=== PATIENT | female | born 1995 | race African-American/Black ===

== ENCOUNTER 2019-11-11 22:01 | Observation (INO) | payer MEDICAID ==
[~2019-11-11] VITALS: Ht 162.6 cm; Wt 69.4 kg
[2019-11-11] MEDS ORDERED: FERR325T6 PO (22:56)
[2019-11-11] MEDS ORDERED: PREN1TAB78 PO (22:56)
[2019-11-11] MEDS ORDERED: ONDA8TAB6 PO (22:56)
[2019-11-11] MEDS ORDERED: ALBUTEROL (23:14)
== END 2019-11-11 23:59 | disposition home or self-care (01) ==
LOC: 8 EST LDRP 22:01
PROVIDERS: ADMIT Obstetrics & Gynecology; ATTEND Obstetrics & Gynecology
DX: O62.9 Abnormality of forces of labor, unspecified (principal); O26.893 Other specified pregnancy related conditions, third trimester; R10.9 Unspecified abdominal pain; Z3A.36 36 weeks gestation of pregnancy
CPT/HCPCS: 99281; G0378

== ENCOUNTER 2024-07-13 09:23 | Emergency (ER) | payer BC, MEDICAID, OTHER ==
[~2024-07-13] VITALS: Ht 165.1 cm; Wt 61.2 kg
[~2024-07-13 09:23] MED LIST: ALBU6.7H15 INH; PRED10TA MT
[2024-07-13 09:32] VITALS: O2SAT 96
[2024-07-13 10:34] LABS: HEMOGLOBIN. 12.2 g/dL (12.0-16.0); MEAN CORPUSCULAR HEMOGLOBIN 29.8 pg (28.0-32.0); MEAN CORPUSCULAR HGB CONC 32.9 g/dL (31.0-37.0); MEAN CORPUSCULAR VOLUME 90.6 fL (81.0-99.0); MEAN PLATELET VOLUME 6.8 fl (7.4-10.4); PLATELET 234 x1000/uL (130-400); RED BLOOD CELL COUNT 4.09 mill/uL (4.2-5.4); RED CELL DISTRIBUTION WIDTH 13.2 % (11.6-14.6); WHITE BLOOD COUNT 4.4 x1000/uL (4.5-11.0)
[2024-07-13 10:39] LABS: CHLORIDE 102 mEq/L (98-107); DIFFERENTIAL COMMENT 1; POTASSIUM 3.3 mEq/L (3.5-5.1); SODIUM 134 mEq/L (136-145)
[2024-07-13 10:40] LABS: CALCIUM 9.1 mg/dL (8.7-10.4); CARBON DIOXIDE 25 mEq/L (21-32)
[2024-07-13 10:45] VITALS: PULSE 62; RESP 18
[2024-07-13 10:45] LABS: CREATININE 0.9 mg/dL (0.6-1.0); GLUCOSE 113 mg/dL (70-105); UREA NITROGEN BLOOD 8 mg/dL (9-23)
[2024-07-13] MEDS: IPRATROPIUM/ALBUTEROL 0.5-3(2.5)MG/3ML NEB HHN ONE (10:45)
[2024-07-13] MEDS: DEXAMETHASONE 10 MG/ML VIAL PO ONE (10:49)
[2024-07-13 10:53] LABS: HCG SCREEN NEGATIVE
[2024-07-13] MEDS: POTASSIUM CHLORIDE 10MEQ TABLET SR PO ONE (11:26)
[2024-07-13] MEDS ORDERED: IBUP-2028 MT (11:37)
[2024-07-13 11:48] LABS: PLATELET ESTIMATE NORMAL
[2024-07-13] MEDS: ONDANSETRON HCL 4MG/2ML INJ IV ONE (12:12)
[2024-07-13] MEDS: SODIUM CHLORIDE 0.9% 1,000 ML IV ONE (12:12)
[2024-07-13] MEDS: KETOROLAC 30MG/ML VIAL IV STA (12:12)
[2024-07-13] MEDS ORDERED: ACETAMINOPHEN 325MG TABLET PO ONE (12:45)
[2024-07-13 12:56] VITALS: BP 127/77; PULSE 79; RESP 18; TEMP 37.00296; O2SAT 98
== END 2024-07-13 13:17 | disposition home or self-care (01) ==
LOC: ER 09:23
DX: R06.02 Shortness of breath (principal); J45.909 Unspecified asthma, uncomplicated; Z90.49 Acquired absence of other specified parts of digestive tract
CPT/HCPCS: 80048; 81025; 84703; 85025; 36415; 71045; 94640; 96374; 96375; 99284; J1100; J1885; Z7610 ×2; J7030

== ENCOUNTER 2024-11-09 09:16 | Emergency (ER) | payer BC ==
[~2024-11-09] VITALS: Ht 162.6 cm; Wt 59.0 kg
[~2024-11-09 09:16] MED LIST changes: +IBUP-2028 MT
[2024-11-09 09:21] VITALS: BP 104/68; PULSE 98; RESP 12; TEMP 36.8; O2SAT 100; O2SAT 99
[2024-11-09] MEDS ORDERED: P50 MT (09:38)
[2024-11-09] MEDS ORDERED: ALBU18HF2 IH (09:38)
== END 2024-11-09 10:01 | disposition home or self-care (01) ==
LOC: ER 09:16
DX: J45.909 Unspecified asthma, uncomplicated (principal); Z76.0 Encounter for issue of repeat prescription; Z90.49 Acquired absence of other specified parts of digestive tract
CPT/HCPCS: 99281

== ENCOUNTER 2024-12-07 13:06 | Emergency (ER) | payer BC ==
[~2024-12-07] VITALS: Ht 162.6 cm; Wt 62.0 kg
[~2024-12-07 13:06] MED LIST changes: +ALBU18HF2 IH; +P50 MT
[2024-12-07 13:07] VITALS: PULSE 83; RESP 16; O2SAT 99
[2024-12-07 13:09] VITALS: BP 99/60; TEMP 36.7; O2SAT 99
[2024-12-07] MEDS ORDERED: P50 MT (13:44)
[2024-12-07] MEDS ORDERED: ALBU18HF2 IH (13:44)
== END 2024-12-07 14:06 | disposition home or self-care (01) ==
LOC: ER 13:06
DX: J45.901 Unspecified asthma with (acute) exacerbation (principal); Z90.49 Acquired absence of other specified parts of digestive tract; Z76.0 Encounter for issue of repeat prescription
CPT/HCPCS: 99283

== ENCOUNTER 2025-05-07 19:08 | Emergency (ER) | payer SELFPAY ==
[~2025-05-07] VITALS: Ht 160 cm; Wt 61.7 kg
[2025-05-07 19:15] VITALS: TEMP 37.1
[2025-05-07 19:49] LABS: BASOPHILS % 0.6 % (0.0-2.0); EOSINOPHILS % 5.0 % (0.0-5.0); HEMATOCRIT. 36.8 % (36.0-48.0); HEMOGLOBIN. 12.1 g/dL (12.0-16.0); LYMPHOCYTES % 46.0 % (20.0-50.0); MEAN PLATELET VOLUME 6.7 fl (7.4-10.4); MONOCYTES % 7.2 % (2.0-8.0); NEUTROPHILS % 41.2 % (40.0-76.0); PLATELET 290 x1000/uL (130-400); RED BLOOD CELL COUNT 4.16 mill/uL (4.2-5.4); RED CELL DISTRIBUTION WIDTH 13.4 % (11.6-14.6)
[2025-05-07 20:03] LABS: CREATININE 0.8 mg/dL (0.6-1.0); UREA NITROGEN BLOOD 11 mg/dL (9-23)
[2025-05-07 20:04] LABS: TROPONIN I HIGH SENSITIVITY < 4 ng/L (3.0-34)
[2025-05-07] MEDS ORDERED: METHYLPREDNISOLONE 40MG/ML INJ IV ONE (20:30)
[2025-05-07] MEDS: METHYLPREDNISOLONE SOD SUCC 125MG/2ML (ACT-O-VIAL) IM SCH (20:45)
[2025-05-07 20:46] VITALS: PULSE 73; RESP 20; O2SAT 98
[2025-05-07] MEDS: IPRATROPIUM/ALBUTEROL 0.5-3(2.5)MG/3ML NEB HHN ONE (20:46)
[2025-05-07] MEDS ORDERED: PRED5TAB48 MT (21:39)
[2025-05-07] MEDS: DEXAMETHASONE 10 MG/ML VIAL PO ONE (21:47)
[2025-05-07 22:04] VITALS: BP 115/73; PULSE 63; RESP 12; O2SAT 100
== END 2025-05-07 22:06 | disposition home or self-care (01) ==
LOC: ER 19:08
DX: J45.901 Unspecified asthma with (acute) exacerbation (principal); Z79.52 Long term (current) use of systemic steroids; Z90.49 Acquired absence of other specified parts of digestive tract; Z79.899 Other long term (current) drug therapy
CPT/HCPCS: 80048; 81025; 85025; 84484; 36415; 71045; 94640; 93005; 99285; J1100; Z7610 ×3; 94070; J2919